=== PATIENT | male | born 1960 | race Caucasian/White ===

== ENCOUNTER 2020-04-03 09:32 | Inpatient (IN) | payer MEDICAID ==
[2020-04-03] MEDS ORDERED: NITROGLYCERIN OINT 1 INCH/GM PACKET TOPICAL STA (10:14)
[2020-04-03] MEDS ORDERED: ASPIRIN 81 MG PO STA (10:14)
--- NOTE | 2020-04-03 10:34 | XR ---
EXAMINATION TYPE: XR chest 2V DATE OF EXAM: 04/03/2020 COMPARISON: None HISTORY: 59-year-old male with chest pain TECHNIQUE: PA and lateral views FINDINGS: Heart normal size. Mild tortuosity of the thoracic aorta. Mild interstitial prominence of the chronic appearance. No consolidation or pleural effusion. Old right-sided rib fracture deformity. IMPRESSION: Chronic-appearing changes without acute cardiopulmonary process.
--- NOTE | 2020-04-03 10:34 | ED ---
General Adult HPI - General Chief complaint: Chest Pain Stated complaint: heart burn/chest pain Time Seen by Provider: 04/03/20 09:35 Source: patient, RN notes reviewed, old records reviewed Mode of arrival: ambulatory Limitations: no limitations - History of Present Illness Initial comments: This is a 59-year-old male who presents to the emergency department who states been having intermittent chest pain for months. Patient states his been getting worse. Patient states is definitely worse with exertion. Patient denies any radiation of the pain he denies any shortness of breath or diaphoretic episodes. Patient denies any nausea vomiting. Patient thought it was heartburn but taking Tums or antacids do not help. Patient denies any recent fever chills or cough. Patient states the pain typically only last 2-3 minutes. Patient states he is a smoker and he does have a brother who had a stent. - Related Data Home Medications Medication Instructions Recorded Confirmed No Known Home Medications 04/03/20 04/03/20 Allergies Allergy/AdvReac Type Severity Reaction Status Date / Time Tetanus Vaccines and Toxoid Allergy Unknown Verified 04/03/20 10:33 Review of Systems ROS Statement: Those systems with pertinent positive or pertinent negative responses have been documented in the HPI. ROS Other: All systems not noted in ROS Statement are negative. Past Medical History Past Medical History: No Reported History History of Any Multi-Drug Resistant Organisms: None Reported Past Surgical History: No Surgical Hx Reported Past Psychological History: No Psychological Hx Reported Smoking Status: Current every day smoker Past Alcohol Use History: Rare Past Drug Use History: Marijuana General Exam - General Exam Comments Initial Comments: GENERAL: Patient is well-developed and well-nourished. Patient is nontoxic and well- hydrated and is in mild distress. ENT: Neck is soft and supple. No significant lymphadenopathy is noted. Oropharynx is clear. Moist mucous membranes. Neck has full range of motion without eliciting any pain. EYES: The sclera were anicteric and conjunctiva were pink and moist. Extraocular movements were intact and pupils were equal round and reactive to light. Eyelids were unremarkable. PULMONARY: Unlabored respirations. Good breath sounds bilaterally. No audible rales rhonchi or wheezing was noted. CARDIOVASCULAR: There is a regular rate and rhythm without any murmurs gallops or rubs. ABDOMEN: Soft and nontender with normal bowel sounds. SKIN: Skin is clear with no lesions or rashes and otherwise unremarkable. NEUROLOGIC: Patient is alert and oriented x3. Cranial nerves II through XII are grossly intact. Motor and sensory are also intact. Normal speech, volume and content. Symmetrical smile. MUSCULOSKELETAL: Normal extremities with adequate strength and full range of motion. No lower extremity swelling or edema. No calf tenderness. LYMPHATICS: No significant lymphadenopathy is noted PSYCHIATRIC: Normal psychiatric evaluation. Limitations: no limitations Course Vital Signs 04/03/20 04/03/20 04/03/20 09:33 10:19 11:14 Temperature 97.9 F Pulse Rate 59 L 58 L 52 L Respiratory 18 16 16 Rate Blood Pressure 185/82 144/86 142/83 O2 Sat by Pulse 98 97 99 Oximetry Medical Decision Making - Medical Decision Making EKG shows sinus bradycardia 56 bpm WV interval 144 QRS is 86 QT interval is 424 QTC is 409. EKG shows no ST segment elevation or depression. Chest x-ray shows no acute abnormality. I started the patient heparin because of an elevated troponin had symptoms that clinically were consistent with unstable angina. I spoke with Dr. Tirado agreed to admit the patient admitted the patient wrote admitting orders I continued heparin Nitropaste on the floor. - Lab Data Result diagrams: 04/03/20 09:56 04/03/20 09:56 Lab Results 04/03/20 04/03/20 04/03/20 Range/Units 09:56 09:56 09:56 WBC 6.3 (3.8-10.6) k/uL RBC 5.11 (4.30-5.90) m/uL Hgb 15.6 (13.0-17.5) gm/dL Hct 47.8 (39.0-53.0) % MCV 93.6 (80.0-100.0) fL MCH 30.6 (25.0-35.0) pg MCHC 32.7 (31.0-37.0) g/dL RDW 12.9 (11.5-15.5) % Plt Count 225 (150-450) k/uL Neutrophils % 54 % Lymphocytes % 33 % Monocytes % 6 % Eosinophils % 4 % Basophils % 1 % Neutrophils # 3.4 (1.3-7.7) k/uL Lymphocytes # 2.1 (1.0-4.8) k/uL Monocytes # 0.4 (0-1.0) k/uL Eosinophils # 0.2 (0-0.7) k/uL Basophils # 0.1 (0-0.2) k/uL PT 9.9 (9.0-12.0) sec INR 0.9 (<1.2) APTT 24.1 (22.0-30.0) sec Sodium 138 (137-145) mmol/L Potassium 4.5 (3.5-5.1) mmol/L Chloride 105 (98-107) mmol/L Carbon Dioxide 24 (22-30) mmol/L Anion Gap 9 mmol/L BUN 18 (9-20) mg/dL Creatinine 0.88 (0.66-1.25) mg/dL Est GFR (CKD-EPI)AfAm >90 (>60 ml/min/1.73 sqM) Est GFR (CKD-EPI)NonAf >90 (>60 ml/min/1.73 sqM) Glucose 101 H (74-99) mg/dL Calcium 9.3 (8.4-10.2) mg/dL Magnesium 2.0 (1.6-2.3) mg/dL Total Bilirubin 0.5 (0.2-1.3) mg/dL AST 30 (17-59) U/L ALT 32 (4-49) U/L Alkaline Phosphatase 78 (38-126) U/L Troponin I (0.000-0.034) ng/mL Total Protein 7.3 (6.3-8.2) g/dL Albumin 4.5 (3.5-5.0) g/dL 04/03/20 Range/Units 09:56 WBC (3.8-10.6) k/uL RBC (4.30-5.90) m/uL Hgb (13.0-17.5) gm/dL Hct (39.0-53.0) % MCV (80.0-100.0) fL MCH (25.0-35.0) pg MCHC (31.0-37.0) g/dL RDW (11.5-15.5) % Plt Count (150-450) k/uL Neutrophils % % Lymphocytes % % Monocytes % % Eosinophils % % Basophils % % Neutrophils # (1.3-7.7) k/uL Lymphocytes # (1.0-4.8) k/uL Monocytes # (0-1.0) k/uL Eosinophils # (0-0.7) k/uL Basophils # (0-0.2) k/uL PT (9.0-12.0) sec INR (<1.2) APTT (22.0-30.0) sec Sodium (137-145) mmol/L Potassium (3.5-5.1) mmol/L Chloride (98-107) mmol/L Carbon Dioxide (22-30) mmol/L Anion Gap mmol/L BUN (9-20) mg/dL Creatinine (0.66-1.25) mg/dL Est GFR (CKD-EPI)AfAm (>60 ml/min/1.73 sqM) Est GFR (CKD-EPI)NonAf (>60 ml/min/1.73 sqM) Glucose (74-99) mg/dL Calcium (8.4-10.2) mg/dL Magnesium (1.6-2.3) mg/dL Total Bilirubin (0.2-1.3) mg/dL AST (17-59) U/L ALT (4-49) U/L Alkaline Phosphatase (38-126) U/L Troponin I 0.064 H* (0.000-0.034) ng/mL Total Protein (6.3-8.2) g/dL Albumin (3.5-5.0) g/dL Critical Care Time Critical Care Time: Yes Total Critical Care Time: 35 Disposition Clinical Impression: Unstable angina pectoris Disposition: ADMITTED IP TO THIS [facility] Referrals: None,Stated [Primary Care Provider] - 1-2 days Time of Disposition: 11:36
[2020-04-03 10:40] LABS: Basophils # (A) 0.1 k/uL (0-0.2); Basophils % (A) 1 %; Eosinophils # (A) 0.2 k/uL (0-0.7); Eosinophils % (A) 4 %; HCT 47.8 % (39.0-53.0); HGB 15.6 gm/dL (13.0-17.5); Lymphocytes # (A) 2.1 k/uL (1.0-4.8); Lymphocytes % (A) 33 %; MCH 30.6 pg (25.0-35.0); MCHC 32.7 g/dL (31.0-37.0); MCV 93.6 fL (80.0-100.0); Monocytes # (A) 0.4 k/uL (0-1.0); Monocytes % (A) 6 %; Neutrophils # (A) 3.4 k/uL (1.3-7.7); Neutrophils % (A) 54 %; Platelet Count 225 k/uL (150-450); RBC 5.11 m/uL (4.30-5.90); RDW 12.9 % (11.5-15.5); WBC 6.3 k/uL (3.8-10.6)
[2020-04-03 10:47] LABS: INR 0.9 (<1.2); Partial Thromboplastin Time 24.1 sec (22.0-30.0); Prothrombin Time 9.9 sec (9.0-12.0)
[2020-04-03 10:51] LABS: ALT 32 U/L (4-49); AST 30 U/L (17-59); African American GFR (CKD) >90 (>60 ml/min/1.73 sqM); Albumin 4.5 g/dL (3.5-5.0); Alkaline Phosphatase 78 U/L (38-126); Anion Gap 9 mmol/L; Blood Urea Nitrogen 18 mg/dL (9-20); Calcium 9.3 mg/dL (8.4-10.2); Carbon Dioxide 24 mmol/L (22-30); Chloride 105 mmol/L (98-107); Glucose 101 mg/dL (74-99); Non-African American GFR(CKD) >90 (>60 ml/min/1.73 sqM); Potassium 4.5 mmol/L (3.5-5.1); Sodium 138 mmol/L (137-145); Total Bilirubin 0.5 mg/dL (0.2-1.3); Total Protein 7.3 g/dL (6.3-8.2)
[2020-04-03] MEDS ORDERED: HEPARIN SODIUM,PORCINE 5,000 UNIT/ML 1 ML VIAL IV ONE (11:35)
[2020-04-03] MEDS ORDERED: NITROGLYCERIN SL TABS 0.4 MG TAB SUBLINGUAL PRN ×3 (11:36→17:56)
[2020-04-03] MEDS ORDERED: HEPARIN SOD,PORK IN 0.45% NACL 25,000 UNIT in 0.45% NACL 1 250ML.BAG IV SCH (11:45)
[2020-04-03] MEDS: NITROGLYCERIN OINT 1 INCH/GM PACKET TOPICAL SCH ×2 (12:12→15:42)
[2020-04-03] MEDS ORDERED: PANTOPRAZOLE 40 MG/10 ML VIAL IVP SCH (14:00)
--- NOTE | 2020-04-03 14:06 | P.HPIM ---
History of Present Illness 59-year-old the pleasant male came in with compensative intermittent chest pain has been going on for a few months mostly in the epigastric area burning sensation patient was having increasing pain yesterday patient had an episode of epigastric pain and retrosternal pain which is mostly pressure-like sensation moderate to severe associated with nausea denied any vomiting it's also associated shortness of breath or of diaphoresis. Patient doesn't have any ST segment elevation or depression. Patient does smoke about a pack a day patient does have history of premature cannot disease in his brother. Who had myocardial infarction around this age and had stents in the past. His chest pain lasts about a minute nonradiating not associated with food nonpleuritic in nature for nonexertional. Review of Systems REVIEW OF SYSTEMS: CONSTITUTIONAL: No fever, no malaise, no fatigue. HEENT: No recent visual problems or hearing problems. Denied any sore throat. CARDIOVASCULAR: No orthopnea, PND, no palpitations, no syncope. PULMONARY:, no cough, no hemoptysis. GASTROINTESTINAL: No diarrhea, no nausea, no vomiting, no abdominal pain. NEUROLOGICAL: No headaches, no weakness, no numbness. HEMATOLOGICAL: Denies any bleeding or petechiae. GENITOURINARY: Denies any burning micturition, frequency, or urgency. MUSCULOSKELETAL/RHEUMATOLOGICAL: Denies any joint pain, swelling, or any muscle pain. ENDOCRINE: Denies any polyuria or polydipsia. The rest of the 14-point review of systems is negative. Past Medical History Past Medical History: No Reported History Additional Past Medical History / Comment(s): psoriasis History of Any Multi-Drug Resistant Organisms: None Reported Past Surgical History: No Surgical Hx Reported Past Anesthesia/Blood Transfusion Reactions: No Reported Reaction Past Psychological History: No Psychological Hx Reported Smoking Status: Current every day smoker Past Alcohol Use History: Rare Past Drug Use History: Marijuana - Past Family History Brother(s) Additional Family Medical History / Comment(s): [place] with stent placed Medications and Allergies Home Medications Medication Instructions Recorded Confirmed Type No Known Home Medications 04/03/20 04/03/20 History Allergies Allergy/AdvReac Type Severity Reaction Status Date / Time Tetanus Vaccines and Toxoid Allergy Unknown Verified 04/03/20 10:33 Physical Exam Vitals: Vital Signs Temp Pulse Resp BP Pulse Ox 04/03/20 12:10 49 L 16 135/81 99 06/03/20 11:14 52 L 16 142/83 99 04/03/20 10:19 58 L 16 144/86 97 04/03/20 09:33 97.9 F 59 L 18 185/82 98 Intake and Output 04/02/20 04/03/20 04/03/20 22:59 06:59 14:59 Other: Weight 101.106 kg PHYSICAL EXAMINATION: GENERAL: The patient is alert and oriented x3, not in any acute distress. Well developed, well nourished. HEENT: Pupils are round and equally reacting to light. EOMI. No scleral icterus. No conjunctival pallor. Normocephalic, atraumatic. No pharyngeal erythema. No thyromegaly. CARDIOVASCULAR: S1 and S2 present. No murmurs, rubs, or gallops. PULMONARY: Chest is clear to auscultation, no wheezing or crackles. ABDOMEN: Soft, nontender, nondistended, normoactive bowel sounds. No palpable organomegaly. MUSCULOSKELETAL: No joint swelling or deformity. EXTREMITIES: No cyanosis, clubbing, or pedal edema. NEUROLOGICAL: Gross neurological examination did not reveal any focal deficits. SKIN: No rashes. Results CBC & Chem 7: 04/03/20 09:56 04/03/20 09:56 Labs: Abnormal Lab Results - Last 24 Hours (Table) 04/03/20 04/03/20 Range/Units 09:56 09:56 Glucose 101 H (74-99) mg/dL Troponin I 0.064 H* (0.000-0.034) ng/mL Thrombosis Risk Factor Assmnt - Choose All That Apply Each Factor Represents 1 point: Age 41-60 years Other Risk Factors: No Other congenital or acquired thrombophilia - If yes, enter type in comment: No Thrombosis Risk Factor Assessment Total Risk Factor Score: 1 Thrombosis Risk Factor Assessment Level: Low Risk Assessment and Plan Plan: -Chest pain: Possibly of unstable angina R non-ST elevation microinfarction cannot be ruled out at patient had a mild troponin elevation of 0.06 cardiology will evaluate patient will be continued on heparin. Patient may need a stress test or cardiac catheterization depending on the next appointment. -Nicotine abuse: Counseling was provided -Possibly gastric his visual reflux disease: Patient was started on Protonix
[2020-04-03] MEDS ORDERED: ATORVASTATIN 80 MG TAB PO STA (14:25)
[2020-04-03] MEDS ORDERED: ASPIRIN 325 MG TAB PO STA (14:25)
[2020-04-03] MEDS ORDERED: SODIUM CHLORIDE 0.9% 1,000 ML in EMPTY BAG 1 BAG IV ONE (14:25)
[2020-04-03] MEDS ORDERED: ALPRAZolam 0.5 MG TAB PO PRN (14:25)
[2020-04-03] MEDS ORDERED: ALPRAZolam 0.25 MG TAB PO PRN (14:25)
--- NOTE | 2020-04-03 14:30 | P.CRDCN ---
History of Present Illness Consult date: 04/03/20 Chief complaint: Chest pain History of present illness: This is a very pleasant 59-year-old gentleman who did not see physicians in more than 10 years with a significant history of smoking as well as significant family history of coronary artery disease involving his brother at his age presented to the emergency room complaining of chest discomfort. For the last 3-4 weeks he has been experiencing intermittent episodes of chest discomfort. He described his discomfort as a burning sensation, in the mid of the chest, without any radiation to the arms or neck or shoulders and without any associated symptoms of sweating, dizziness, heart racing, or syncope. The symptoms of chest discomfort seems to be exertional. Lately and for the last few days it has been more intense and more frequent converted to before and because of that he decided to come to the emergency department. The EKG showed sinus rhythm with sinus bradycardia and nonspecific changes/ST changes in the inferior leads. The cardiac enzymes were checked and came in to be abnormal and consistent was acute coronary syndrome. The chest x-ray did not show any acute abnormalities. Currently the patient is under a lot of stress with his who is a worker here in this hospital who does have cancer and currently she is on chemotherapy. The patient is not aware of any history of coronary artery disease or congestive heart failure or diabetes or hypertension or dyslipidemia but at the same time the patient does not see a doctor or primary care physician on regular basis. Past Medical History Past Medical History: No Reported History Additional Past Medical History / Comment(s): psoriasis History of Any Multi-Drug Resistant Organisms: None Reported Past Surgical History: No Surgical Hx Reported Past Anesthesia/Blood Transfusion Reactions: No Reported Reaction Past Psychological History: No Psychological Hx Reported Smoking Status: Current every day smoker Past Alcohol Use History: Rare Past Drug Use History: Marijuana - Past Family History Brother(s) Additional Family Medical History / Comment(s): [place] with stent placed Medications and Allergies Home Medications Medication Instructions Recorded Confirmed Type No Known Home Medications 04/03/20 04/03/20 History Allergies Allergy/AdvReac Type Severity Reaction Status Date / Time Tetanus Vaccines and Toxoid Allergy Unknown Verified 04/03/20 10:33 Physical Exam Vitals: Vital Signs Temp Pulse Resp BP Pulse Ox 04/03/20 12:10 49 L 16 135/81 99 04/03/20 11:14 52 L 16 142/83 99 04/03/20 10:19 58 L 16 144/86 97 04/03/20 09:33 97.9 F 59 L 18 185/82 98 Intake and Output 04/02/20 04/03/20 04/03/20 22:59 06:59 14:59 Other: Weight 101.106 kg - Constitutional General appearance: no acute distress - Respiratory Respiratory: bilateral: CTA - Cardiovascular Rhythm: regular Heart sounds: normal: S1, S2 Results 04/03/20 09:56 04/03/20 09:56 Cardiac Enzymes 04/03/20 04/03/20 Range/Units 09:56 09:56 AST 30 (17-59) U/L Troponin I 0.064 H* (0.000-0.034) ng/mL Coagulation 04/03/20 Range/Units 09:56 PT 9.9 (9.0-12.0) sec APTT 24.1 (22.0-30.0) sec CBC 04/03/20 Range/Units 09:56 WBC 6.3 (3.8-10.6) k/uL RBC 5.11 (4.30-5.90) m/uL Hgb 15.6 (13.0-17.5) gm/dL Hct 47.8 (39.0-53.0) % Plt Count 225 (150-450) k/uL Comprehensive Metabolic Panel 04/03/20 Range/Units 09:56 Sodium 138 (137-145) mmol/L Potassium 4.5 (3.5-5.1) mmol/L Chloride 105 (98-107) mmol/L Carbon Dioxide 24 (22-30) mmol/L BUN 18 (9-20) mg/dL Creatinine 0.88 (0.66-1.25) mg/dL Glucose 101 H (74-99) mg/dL Calcium 9.3 (8.4-10.2) mg/dL AST 30 (17-59) U/L ALT 32 (4-49) U/L Alkaline Phosphatase 78 (38-126) U/L Total Protein 7.3 (6.3-8.2) g/dL Albumin 4.5 (3.5-5.0) g/dL Current Medications Generic Name Dose Route Start Last Admin Trade Name Freq PRN Reason Stop Dose Admin Alprazolam 0.25 mg 04/03/20 14:25 Xanax PO Q6HR PRN Mild Anxiety Alprazolam 0.5 mg 04/03/20 14:25 Xanax PO Q6HR PRN Moderate Anxiety Aspirin 325 mg 04/04/20 09:00 Aspirin PO DAILY CHACHA Aspirin 325 mg 04/03/20 14:25 Aspirin PO 04/03/20 14:26 ONCE STA Atorvastatin Calcium 80 mg 04/03/20 14:25 Lipitor PO 04/03/20 14:26 ONCE STA Heparin Sodium/Sodium Chloride 250 mls @ 9.89 mls/hr 04/03/20 11:45 04/03/20 12:31 25,000 unit/ Sodium Chloride IV 9.78 units/kg/hr .Q24H CHACHA 9.89 mls/hr Administration Protocol Sodium Chloride 1,000 ml/ IV 1,000 mls @ 101.106 mls/hr 04/03/20 14:25 Solution IV 04/04/20 00:18 .Q9H54M ONE 1 ML/KG/HR Lisinopril 5 mg 04/04/20 09:00 Zestril PO DAILY [facility] Nitroglycerin 1 inch 04/03/20 12:00 04/03/20 12:12 Nitro-Bid Oint TOPICAL Not Given Q6HR [facility] Nitroglycerin 0.4 mg 04/03/20 11:36 Nitrostat SUBLINGUAL Q5M PRN Chest Pain Nitroglycerin 0.4 mg 04/03/20 14:25 Nitrostat SUBLINGUAL Q5M PRN Chest Pain Pantoprazole Sodium 40 mg 04/03/20 14:00 Protonix IVP DAILY [facility] Intake and Output 04/02/20 04/03/20 04/03/20 22:59 06:59 14:59 Other: Weight 101.106 kg Patient Weight 04/04/20 06:59 Weight 101.106 kg 04/03/20 09:56 04/03/20 09:56 Assessment and Plan Assessment: Assessment #1 acute non-ST elevation myocardial infarction #2 significant history of smoking #3 significant family history of coronary artery disease Plan #1 continue the current medical regimen including aspirin and heparin #2 start the patient on lisinopril for blood pressure control #3 start the patient on oral nitrate #4 obtain an echocardiogram was Doppler #5 scheduled the patient to undergo coronary angiogram to rule out severe CAD #6 follow up with the patient Thank you for allowing us participate in his care
[2020-04-03] MEDS: LISINOPRIL 5 MG TAB PO SCH (15:41)
[2020-04-03 16:09] LABS: Glucose,Whole Blood 116 mg/dL (75-99)
[2020-04-03] MEDS ORDERED: VERAPAMIL 2.5 MG/ML 2 ML AMP ONE (16:39)
[2020-04-03] MEDS ORDERED: LIDOCAINE 1% INJ 10MG/ML (20 ML MDV) ONE (16:39)
[2020-04-03] MEDS ORDERED: HEPARIN SODIUM 1,000 UN/ML (10ML VL) ONE (16:39)
[2020-04-03] MEDS ORDERED: IV FLUID CONTINUATION 1,000 ML IV ONE (16:52)
[2020-04-03] MEDS ORDERED: MIDAZOLAM 2 MG/2 ML VIAL IV ONE (17:27)
[2020-04-03] MEDS ORDERED: LIDOCAINE 1% INJ 10MG/ML (20 ML MDV) SQ ONE (17:27)
[2020-04-03] MEDS: VERAPAMIL SYRINGE (5 MG/10 ML) INTRAARTER ONE ×2 (17:29→17:49)
[2020-04-03] MEDS ORDERED: BIVALIRUDIN BOLUS 250 MG/50 ML IV ONE (17:32)
[2020-04-03] MEDS ORDERED: BIVALIRUDIN 250 MG in SODIUM CHLORIDE 0.9% 50 ML IV ONE (17:33)
[2020-04-03] MEDS ORDERED: PRASUGREL 10 MG TAB ONE (17:34)
[2020-04-03] MEDS ORDERED: PRASUGREL 10 MG TAB PO ONE (17:34)
[2020-04-03] MEDS ORDERED: NITROGLYCERIN 1000MCG/10ML SYRINGE INTRACORON ONE (17:44)
[2020-04-03] MEDS ORDERED: IOPAMIDOL-370 125ML BTL INJ ONE (17:48)
[2020-04-03] MEDS ORDERED: ATROPINE SULFATE 0.1 MG/ML 10ML SYRINGE IV PRN (17:56)
[2020-04-03] MEDS ORDERED: MAG HYDROX/AL HYDROX/SIMETH 30 ML CUP PO PRN (17:56)
[2020-04-03] MEDS ORDERED: ZOLPIDEM 5 MG TAB PO PRN (17:56)
[2020-04-03] MEDS ORDERED: RX INFO: IV CONTRAST WAS GIVEN 1 EACH MISC MISCELLANE PRN (17:56)
[2020-04-03] MEDS ORDERED: SODIUM CHLORIDE 0.9% 1,000 ML IV SCH (18:00)
--- NOTE | 2020-04-03 18:31 | CC ---
CARDIAC CATHETERIZATION REPORT DATE OF PROCEDURE: 04/03/2020 PERFORMING PHYSICIAN: Gucci Lockett M.D. PROCEDURES PERFORMED: 1. Selective right and left coronary angiogram. 2. Left heart catheterization. 3. Successful stenting of the distal right coronary artery using a 4.0 x 15 mm Xience drug-eluting stent with an excellent angiographic result and reduction of stenosis from 99% to 0%. INDICATION: This is a 59-year-old gentleman with history of smoking and significant family history of coronary artery disease. He presented to the hospital with chest discomfort and ruled in for acute [id number] myocardial infarction. Because of the EKG changes as well as abnormal cardiac enzymes and chest discomfort, I decided to pursue heart catheterization. APPROACH: Right radial artery. COMPLICATIONS: None. LEVEL OF SEDATION: Moderate, with sedation length of 24 minutes. PROCEDURE DESCRIPTION: After obtaining informed consent, the patient was brought to the cardiac laboratory courier. The right radial artery was cannulated using micropuncture technique. The micropuncture wire passed easily. Then I placed a 6-Telugu sheath 11 cm at the right radial artery. After that I gave the patient 2 mg of verapamil IA. Selective right and left coronary angiogram was performed using JR4 and JL3.5 catheters. Left heart catheterization was performed using a 6-Telugu pigtail catheter. The left heart catheterization was performed after the angioplasty on the right. Subsequently I did intervene on the right coronary artery. Please see separate paragraph for that. SELECTIVE CORONARY ANGIOGRAM: 1. The right coronary artery is a large-caliber vessel and it is a dominant vessel. The proximal and mid RCA appeared to be angiographically normal. The RCA distally has a tight lesion that appeared to be in the range of 95% to 99%. 2. The left main is angiographically normal. It bifurcates into LCX and LAD. 3. The left circumflex is a large-caliber vessel. It is a nondominant vessel. The proximal circumflex is angiographically normal and gives rise to OM1 which seems to be normal. The mid circumflex has mild disease only and that is involving OM2, which is a large-caliber vessel. The circumflex continues after that as a small- caliber vessel in the AV groove. 4. The LAD. The proximal LAD appeared to have mild disease only. The mid LAD is normal and gives rise to a large diagonal branch which seems to be angiographically normal. The LAD distally appeared to be normal. 5. HEMODYNAMICS: The LVEDP was 10 to 12 mmHg without significant gradient across the aortic valve. PERCUTANEOUS CORONARY INTERVENTION OF THE RIGHT CORONARY ARTERY: Anticoagulation was initiated using Angiomax. Subsequently I did engage the RCA using JR4 guide. I did wire the right coronary artery using a run-through wire. Subsequently I did direct stenting on the lesion using a 4.0 x 15 mm Xience KIM where the stent was positioned under fluoroscopic guidance and deployed under 16 atmospheres for 20 seconds. The following angiogram showed good angiographic results and the procedure was completed without any complication. CONCLUSION: 1. Critical disease involving the distal right coronary artery. I performed successful stenting of the distal right coronary artery. 2. Mild disease involving the left coronary system. 3. Normal left ventricular end-diastolic pressure. POST-PROCEDURE MANAGEMENT: 1. Maximize medical treatment. 2. Follow up with the patient. [id number] / IJN: [id number] /
[2020-04-04 07:09] LABS: African American GFR (CKD) >90 (>60 ml/min/1.73 sqM); Cholesterol 182 mg/dL (<200); HDL Cholesterol 39 mg/dL (40-60); LDL Cholesterol,Calculated 119 mg/dL (0-99); Non-African American GFR(CKD) >90 (>60 ml/min/1.73 sqM); Triglycerides 121 mg/dL (<150)
[2020-04-04] MEDS: NITROGLYCERIN OINT 1 INCH/GM PACKET TOPICAL SCH (07:20)
[2020-04-04] MEDS ORDERED: PANTOPRAZOLE 40 MG TABLET PO SCH (08:45)
[2020-04-04] MEDS ORDERED: LISINOPRIL 5 MG TAB PO SCH (09:00)
[2020-04-04] MEDS ORDERED: ASPIRIN 325 MG TAB PO SCH (09:00)
[2020-04-04] MEDS ORDERED: ISOSORBIDE MONONITRATE ER 30 MG TAB.ER.24H PO SCH (09:00)
[2020-04-04] MEDS ORDERED: ASPIRIN 81 MG PO SCH (09:00)
[2020-04-04] MEDS ORDERED: PRASUGREL 10 MG TAB PO SCH (09:00)
[2020-04-04] MEDS: LISINOPRIL 5 MG TAB PO SCH (09:02)
--- NOTE | 2020-04-04 10:07 | P.PN ---
Subjective Progress Note Date: 04/04/20 This is a very pleasant 59-year-old gentleman who did not see physicians in more than 10 years with a significant history of smoking as well as significant family history of coronary artery disease involving his brother at his age presented to the emergency room complaining of chest discomfort. patient was noted to have mild abnormality in troponin, as well as subsequent EKG changes. For this reason he was taken to the cardiac catheterization lab yesterday by Dr. Avilapatient underwent successful stenting of the distal right coronary artery. He was seen and examined this morning, denied any chest pain, no difficulty in breathing.blood pressure 112/78, heart rate 51-58, 98% on room air.creatinine this morning 0.8. Objective - Vital Signs Vital signs: Vital Signs Temp 97.9 F 04/04/20 04:00 Pulse 51 L 04/04/20 04:00 Resp 14 04/04/20 04:00 BP 112/78 04/04/20 04:00 Pulse Ox 98 04/04/20 04:00 Intake & Output 04/03/20 04/04/20 04/04/20 18:59 06:59 18:59 Intake Total 167.637 118 Balance 167.637 118 Weight 101.106 kg 99.6 kg Intake: IV 135 Intake, IV Titration 32.637 Amount Heparin Sod,Pork in 0.45% 32.637 NaCl 25,000 unit In 0.45 % NaCl 1 250ml.bag @ 9.89 mls/hr IV .Q24H [facility] Rx#: [id number] Oral 118 Other: # Voids 2 - Exam PHYSICAL EXAMINATION: GENERAL:59-year-old gentleman in no acute distress at the time of my HEENT: Head is atraumatic, normocephalic. Pupils equal, round. Sclera anicteric. Conjunctiva are clear. Mucous membranes of the mouth are moist. Neck is supple. There is no elevated jugular venous pressure.no carotid bruit is heard. HEART EXAMINATION: [Heart S1, S2 normal. No murmur or gallop heard.] CHEST EXAMINATION:[ Lungs are clear to auscultation and precussion. No chest wall tenderness is noted on palpation or with deep breathing.] ABDOMEN: [ Soft, nontender. Bowel sounds are heard. No organomegaly noted]. EXTREMITIES:[ 2+ peripheral pulses with no evidence of peripheral edema and no calf tenderness noted].right radial site clean and dry, good distal pulse. NEUROLOGIC [patient is awake, alert and oriented 3.] . - Labs CBC & Chem 7: 04/03/20 09:56 04/04/20 06:27 Labs: Abnormal Lab Results - Last 24 Hours (Table) 04/03/20 04/03/20 04/03/20 Range/Units 09:56 09:56 14:52 Glucose 101 H (74-99) mg/dL POC Glucose (mg/dL) (75-99) mg/dL Troponin I 0.064 H* 0.071 H* (0.000-0.034) ng/mL LDL Cholesterol, Calc (0-99) mg/dL HDL Cholesterol (40-60) mg/dL 04/03/20 04/03/20 04/04/20 Range/Units 16:08 21:20 06:27 Glucose (74-99) mg/dL POC Glucose (mg/dL) 116 H (75-99) mg/dL Troponin I 0.078 H* (0.000-0.034) ng/mL LDL Cholesterol, Calc 119 H (0-99) mg/dL HDL Cholesterol 39 L (40-60) mg/dL Assessment and Plan Plan: assessment and plan #1 non-ST elevation MO status post angioplasty and stenting of the right griggs ry artery #2 nicotine dependence #3 hyperlipidemia Plan Patient may be discharged home today. We'll make a follow-up appointment with Dr. Avila in the office in one week. He has been educated regarding the importance of dual antiplatelet therapy. Patient is not on a beta pato because of bradycardia. DNP note has been reviewed, I agree with a documented findings and plan of care. Patient was seen and examined.
[2020-04-04 10:18] VITALS: BMI 29.7
--- NOTE | 2020-04-04 10:52 | P.DS ---
Providers Date of admission: 04/03/20 11:36 Attending physician: Medardo Echols Consults: 04/03/20 11:36 Consult Physician Urgent Consulting Provider: Cardiology Jaya Consult Reason/Comments: Unstable angina Do you want consulting provider notified?: Yes 04/03/20 17:56 Consult Physician Routine Consulting Provider: [place] Consult Reason/Comments: Post Interventional patient Do you want consulting provider notified?: Already Contacted Primary care physician: Stated None Hospital Course: His admitted for non-ST elevation microinfarction underwent cardiac catheterization and found to have occlusion of RCA, patient underwent stenting of RCA and patient will be discharged today patient heart rate is in 50s and patient had inferior wall microinfarction because of which are not discharged on metoprolol patient will be discharged on dual antiplatelet therapy statin and lisinopril. I do not have an echocardiogram available yet. PHYSICAL EXAMINATION: GENERAL: The patient is alert and oriented x3, not in any acute distress. Well developed, well nourished. HEENT: Pupils are round and equally reacting to light. EOMI. No scleral icterus. No conjunctival pallor. Normocephalic, atraumatic. No pharyngeal erythema. No thyromegaly. CARDIOVASCULAR: S1 and S2 present. No murmurs, rubs, or gallops. PULMONARY: Chest is clear to auscultation, no wheezing or crackles. ABDOMEN: Soft, nontender, nondistended, normoactive bowel sounds. No palpable organomegaly. MUSCULOSKELETAL: No joint swelling or deformity. EXTREMITIES: No cyanosis, clubbing, or pedal edema. NEUROLOGICAL: Gross neurological examination did not reveal any focal deficits. SKIN: No rashes. For rest of medical problems has physician course please refer to my HPI from yesterday Plan - Discharge Summary Discharge Rx Participant: No New Discharge Prescriptions: New Aspirin 81 mg PO DAILY #30 chew Prasugrel [Effient] 10 mg PO DAILY #30 tab Isosorbide Mononitrate ER [Imdur] 30 mg PO DAILY #30 tab.er.24h Atorvastatin [Lipitor] 80 mg PO HS #30 tab Nitroglycerin Sl Tabs [Nitrostat] 0.4 mg SUBLINGUAL Q5M PRN #30 tab PRN Reason: Chest Pain Lisinopril [Zestril] 5 mg PO DAILY #30 tab Discharge Medication List Aspirin 81 mg PO DAILY #30 chew 04/04/20 [Rx] Atorvastatin [Lipitor] 80 mg PO HS #30 tab 04/04/20 [Rx] Isosorbide Mononitrate ER [Imdur] 30 mg PO DAILY #30 tab.er.24h 04/04/20 [Rx] Lisinopril [Zestril] 5 mg PO DAILY #30 tab 04/04/20 [Rx] Nitroglycerin Sl Tabs [Nitrostat] 0.4 mg SUBLINGUAL Q5M PRN #30 tab 04/04/20 [Rx] Prasugrel [Effient] 10 mg PO DAILY #30 tab 04/04/20 [Rx] Follow up Appointment(s)/Referral(s): Gucci Lockett MD [STAFF PHYSICIAN] - 04/11/20 11:00 am Jose Mcfarlane III, MD [STAFF PHYSICIAN] - 1 Week (Please call the office to set up an appointment) Patient Instructions/Handouts: *Surgery [facility] - After Heart Catheterization - Guide Dog Instructor Instructions Activity/Diet/Wound Care/Special Instructions: follow activity restrictions until seen at follow up appointment Discharge Disposition: HOME SELF-CARE
[2020-04-04 11:21] VITALS: BP 124/77; PULSE 54; RESP 16; TEMP 97.7
--- NOTE | 2020-04-04 15:21 | ECHOF ---
Referral Reason:NSTEMI MEASUREMENTS -------- HEIGHT: 182.9 cm WEIGHT: 100.7 kg BP: 163/93 IVSd: 1.4 cm (0.6 - 1.1) LVIDd: 5.4 cm (3.9 - 5.3) LVPWd: 1.6 cm (0.6 - 1.1) IVSs: 2.6 cm LVIDs: 2.8 cm LVPWs: 1.6 cm RVIDd: 4.0 cm (< 3.3) LAESV Index (A-L): 23.78 ml/m Ao Diam: 3.8 cm (2.0 - 3.7) AV Cusp: 2.2 cm (1.5 - 2.6) EPSS: 0.6 cm MV E Bhaskar: 0.93 m/s MV DecT: 230 ms MV A Bhaskar: 0.60 m/s MV E/A Ratio: 1.55 RAP: 5.00 mmHg RVSP: 28.98 mmHg %FS: 32.14 % EDV(Teich): 195.61 ml EF(Teich): 59.32 % ESV(Teich): 79.58 ml IVSd: 0.85 cm (0.6 - 1.1) IVSs: 1.85 cm LVIDd: 6.22 cm (3.9 - 5.3) LVIDs: 4.22 cm LVPWd: 1.26 cm (0.6 - 1.1) LVPWs: 1.67 cm MV EF SLOPE: 105.10 mm/s (70 - 150) MV EXCURSION: 13.60 mm (> 18.000) SV(Teich): 116.03 ml FINDINGS -------- Resting bradycardia (HR<60bpm). This was a technically difficult study with suboptimal apical views. The left ventricular size is normal. There is moderate concentric left ventricular hypertrophy. O verall left ventricular systolic function is low-normal with, an EF between 50 - 55 %. The diastoli c filling pattern is normal for the age of the patient 11.86. Atypical septal wall motion The right ventricle is moderately enlarged. Normal LA size by volume 22+/-6 ml/m2. The right atrial size is normal. 5.0mg of Lumason was utilized for enhancement of images Interatrial and interventricular septum intact. The aortic valve is trileaflet and appears structurally normal. There is no evidence of aortic regu rgitation. There is no evidence of aortic stenosis. No mitral regurgitation. Mild tricuspid regurgitation present. There is no evidence of pulmonary hypertension. The right v entricular systolic pressure, as measured by Doppler, is 28.98mmHg. There is no pulmonic regurgitation present. The aortic root size is normal. IVC Not well visulized. Echo free space represents a pericardial fat pad. There is no pericardial effusion. CONCLUSIONS -------- 1. Resting bradycardia (HR<60bpm). 2. This was a technically difficult study with suboptimal apical views. 3. The left ventricular size is normal. 4. There is moderate concentric left ventricular hypertrophy. 5. Overall left ventricular systolic function is low-normal with, an EF between 50 - 55 %. 6. The diastolic filling pattern is normal for the age of the patient 11.86 7. Atypical septal wall motion 8. The right ventricle is moderately enlarged. 9. Normal LA size by volume 22+/-6 ml/m2. 10. The right atrial size is normal. 11. 5.0mg of Lumason was utilized for enhancement of images 12. Interatrial and interventricular septum intact. 13. The aortic valve is trileaflet and appears structurally normal. 14. There is no evidence of aortic regurgitation. 15. There is no evidence of aortic stenosis. 16. No mitral regurgitation. 17. Mild tricuspid regurgitation present. 18. There is no evidence of pulmonary hypertension. 19. The right ventricular systolic pressure, as measured by Doppler, is 28.98mmHg. 20. There is no pulmonic regurgitation present. 21. The aortic root size is normal. 22. IVC Not well visulized. 23. Echo free space represents a pericardial fat pad. 24. There is no pericardial effusion. CERTIFIED MARINE MECHANIC: Anaya Esteves RDCS
[2020-04-04] MEDS ORDERED: ATORVASTATIN 80 MG TAB PO SCH (21:00)
== END 2020-04-04 11:48 | disposition home or self-care (01) | DRG 247 ==
LOC: EC 09:32 → 3SCARD 11:36
PROVIDERS: ADMIT Internal Medicine; ATTEND Internal Medicine
PROC: 027034Z Dilation of Coronary Artery, One Artery with Drug-eluting Intraluminal Device, Percutaneous Approach (ICD-10-PCS; principal; 2020-04-03 17:00)
PROC: B2111ZZ Fluoroscopy of Multiple Coronary Arteries using Low Osmolar Contrast (ICD-10-PCS; principal; 2020-04-03 17:00)
PROC: 4A023N7 Measurement of Cardiac Sampling and Pressure, Left Heart, Percutaneous Approach (ICD-10-PCS; principal; 2020-04-03 17:00)
DX: I21.4 Non-ST elevation (NSTEMI) myocardial infarction (principal); E78.5 Hyperlipidemia, unspecified; F17.210 Nicotine dependence, cigarettes, uncomplicated; K21.9 Gastro-esophageal reflux disease without esophagitis; L40.9 Psoriasis, unspecified; I25.10 Atherosclerotic heart disease of native coronary artery without angina pectoris; Z88.7 Allergy status to serum and vaccine; Z82.49 Family history of ischemic heart disease and other diseases of the circulatory system
CPT/HCPCS: 36415; 71046; 80053; 80061; 82565; 83735; 84484; 85025; 85610; 85730; 93005; 93306; 93458; 96374; 99291

== ENCOUNTER 2022-03-24 06:57 | Day surgery (SDC) | payer MEDICAID ==
[2022-03-16 13:38] VITALS: BMI 34.4
[~2022-03-24 06:57] MED LIST: LACTATED RINGERS 1,000 ML IV SCH; LIDOCAINE 1% (10MG/ML) FOR IV START INTRADERMA PRN
[2022-03-24 07:31] VITALS: RESP 16; TEMP 98.1
[2022-03-24] MEDS ORDERED: PROPOFOL 10 MG/ML 20 ML VIAL IV ONE (07:37)
--- NOTE | 2022-03-24 07:39 | P.GSHP ---
History of Present Illness H&P Date: 03/24/22 Chief Complaint: colon cancer screening 61-year-old male here today for screening colonoscopy. He has not had one previously. No family history of colon cancer. Past Medical History Past Medical History: Coronary Artery Disease (CAD), Hyperlipidemia, Myocardial Infarction (PA), Osteoarthritis (OA), Skin Disorder Additional Past Medical History / Comment(s): psoriasis, + COVID 11/2021-mild cough, hx migraines, Last Myocardial Infarction Date:: 04/2020 History of Any Multi-Drug Resistant Organisms: None Reported Past Surgical History: Heart Catheterization With Stent, Orthopedic Surgery Additional Past Surgical History / Comment(s): one cardiac stent, anesthesia to repair skin laceration on knee, cyst removed from left middle finger Past Anesthesia/Blood Transfusion Reactions: Motion Sickness Date of Last Stent Placement:: 04/02/2020 Smoking Status: Former smoker - Past Family History Brother(s) Family Medical History: Cancer Additional Family Medical History / Comment(s): PA with stent placed Medications and Allergies Home Medications Medication Instructions Recorded Confirmed Type Nitroglycerin Sl Tabs [Nitrostat] 0.4 mg SUBLINGUAL Q5M PRN #30 tab 04/04/20 03/24/22 Rx Aspirin 81 mg PO PC-SUPPER 03/16/22 03/24/22 History Atorvastatin [Lipitor] 80 mg PO PC-SUPPER 03/16/22 03/24/22 History Losartan Potassium [Cozaar] 50 mg PO PC-SUPPER 03/16/22 03/24/22 History Tamsulosin HCl [Flomax] 0.4 mg PO PC-SUPPER 03/16/22 03/24/22 History Allergies Allergy/AdvReac Type Severity Reaction Status Date / Time Tetanus Vaccines and Toxoid Allergy states his Verified 03/24/22 07:18 body tightened up and was achy. his doctor told h Surgical - Exam Physical exam: General: Well-developed, well-nourished HEENT: Normocephalic, sclerae nonicteric Abdomen: Nontender, nondistended Extremities: No edema Neuro: Alert and oriented Assessment and Plan (1) Colon cancer screening Narrative/Plan: Will proceed with colonoscopy at this time Current Visit: Yes Status: Acute Code(s): Z12.11 - ENCOUNTER FOR SCREENING FOR MALIGNANT NEOPLASM OF COLON SNOMED Code(s): 665671115
--- NOTE | 2022-03-24 07:59 | P.PCN ---
Date of Procedure: 03/24/22 Procedure(s) Performed: PREOPERATIVE DIAGNOSIS: Colon cancer screening POSTOPERATIVE DIAGNOSIS: Diverticulosis, transverse colon polyp, rectal polyp PROCEDURE: Colonoscopy with snare polypectomy ANESTHESIA: MAC SURGEON: Stanley Collado M.D. SPECIMENS: Polyps ENDOSCOPIC PROCEDURE: The patient was placed on the endoscopy table in the left decubitus position. The Olympus colonoscope was inserted into the anus and passed under direct visualization to the base of the cecum. The appendiceal orifice was visualized. From that point the scope was slowly withdrawn inspecting all surfaces carefully. There were no neoplastic inflammatory or polypoid lesions throughout the cecum and ascending colon. In the transverse colon a small polyp was seen and removed using the snare with cautery technique. The remainder of the transverse descending and sigmoid appeared normal. In the rectum a small polyp was seen as well and removed in a similar fashion. The patient had extensive left-sided diverticulosis present. Digital rectal examination was normal. The patient was taken to the recovery room in stable condition per anesthesia guidelines. RECOMMENDATIONS: Await biopsy results. Repeat colonoscopy likely 5 years.
[2022-03-24 08:31] VITALS: BP 143/82; PULSE 51
== END 2022-03-24 08:33 | disposition home or self-care (01) ==
LOC: ORWHC2ENDO 06:57
PROVIDERS: ATTEND Surgery
DX: Z12.11 Encounter for screening for malignant neoplasm of colon (principal); K57.90 Diverticulosis of intestine, part unspecified, without perforation or abscess without bleeding; D12.3 Benign neoplasm of transverse colon; E78.5 Hyperlipidemia, unspecified; I25.10 Atherosclerotic heart disease of native coronary artery without angina pectoris; I25.2 Old myocardial infarction; M19.90 Unspecified osteoarthritis, unspecified site; Z82.49 Family history of ischemic heart disease and other diseases of the circulatory system; Z86.16 Personal history of COVID-19; Z87.891 Personal history of nicotine dependence; Z88.7 Allergy status to serum and vaccine; Z95.5 Presence of coronary angioplasty implant and graft
CPT/HCPCS: 45385; 88305; J2704

== ENCOUNTER 2023-09-30 09:47 | Emergency (ER) | payer MEDICAID ==
[2023-09-30 10:00] VITALS: RESP 18
--- NOTE | 2023-09-30 11:55 | ED ---
General Adult HPI - General Chief complaint: Extremity Injury, Lower Stated complaint: Left leg pain Time Seen by Provider: 09/30/23 09:48 Source: patient Mode of arrival: wheelchair Limitations: no limitations - History of Present Illness Initial comments: 63-year-old male presenting to the ED with a chief complaint of left calf pain. Patient states he has had this pain in his left calf for the past few months. States that he has been going back and forth to the chiropractor for this. States that this has seemed to help however this morning states when he got out of bed felt a pop in his left calf and has had increased pain of it since. States that he has been having difficulty ambulating secondary to this. No chest pain or shortness of breath. No other complaints. - Related Data Home Medications Medication Instructions Recorded Confirmed Aspirin 81 mg PO PC-SUPPER 03/16/22 03/24/22 Atorvastatin [Lipitor] 80 mg PO PC-SUPPER 03/16/22 03/24/22 Losartan Potassium [Cozaar] 50 mg PO PC-SUPPER 03/16/22 03/24/22 Tamsulosin HCl [Flomax] 0.4 mg PO PC-SUPPER 03/16/22 03/24/22 Previous Rx's Medication Instructions Recorded Nitroglycerin Sl Tabs [Nitrostat] 0.4 mg SUBLINGUAL Q5M PRN #30 tab 04/04/20 Allergies Allergy/AdvReac Type Severity Reaction Status Date / Time Tetanus Vaccines and Toxoid Allergy states his Verified 09/30/23 09:57 body tightened up and was achy. his doctor told h Review of Systems ROS Statement: Those systems with pertinent positive or pertinent negative responses have been documented in the HPI. ROS Other: All systems not noted in ROS Statement are negative. Past Medical History Past Medical History: Coronary Artery Disease (CAD), Hyperlipidemia, Hyp ertension Additional Past Medical History / Comment(s): psoriasis History of Any Multi-Drug Resistant Organisms: None Reported Past Surgical History: Heart Catheterization With Stent Past Anesthesia/Blood Transfusion Reactions: No Reported Reaction Past Psychological History: No Psychological Hx Reported Smoking Status: Former smoker Past Alcohol Use History: None Reported Past Drug Use History: Marijuana - Past Family History Brother(s) Additional Family Medical History / Comment(s): IA with stent placed General Exam Limitations: no limitations General appearance: alert, in no apparent distress Neck exam: Present: normal inspection Respiratory exam: Present: normal lung sounds bilaterally Cardiovascular Exam: Present: regular rate, normal rhythm GI/Abdominal exam: Present: soft Extremities exam: Present: other (Strength and sensation equal and intact in bilateral lower extremities. Lower extremity DP/PT pulses 1+. Pain on squeezing the calf. Pain on dorsiflexion of the left calf. No other skin changes) Neurological exam: Present: alert, oriented X3 Skin exam: Present: warm, dry Course Vital Signs 09/30/23 09:53 Temperature 97.7 F Pulse Rate 56 L Respiratory 18 Rate Blood Pressure 164/102 O2 Sat by Pulse 96 Oximetry Medical Decision Making - Medical Decision Making Was pt. sent in by a medical professional or institution (, PA, BEAD FILLER, urgent care, hospital, or group home...) When possible be specific @ -No Did you speak to anyone other than the patient for history (EMS, parent, family, police, friend...)? What history was obtained from this source @ -No Did you review nursing and triage notes (agree or disagree)? Why? @ -I reviewed and agree with nursing and triage notes Were old charts reviewed (outside hosp., previous admission, EMS record, old EKG, old radiological studies, urgent care reports/EKG's, group home records)? Report findings @ -No old charts were reviewed Differential Diagnosis (chest pain, altered mental status, abdominal pain women, abdominal pain men, vaginal bleeding, weakness, fever, dyspnea, syncope, headache, dizziness, GI bleed, back pain, seizure, CVA, palpatations, mental health, musculoskeletal)? @ -Differential Musculoskeletal Muscular strain, contusion, ligament sprain, fracture, arthritis, septic arthritis, bursitis, cellulitis, muscle spasm, nerve compression, DVT, arterial occlusion, herpes zoster, electrolyte abnormality, tumor.... This is not meant to be in all inclusive list EKG interpreted by me (3pts min.). @ -None X-rays interpreted by me (1pt min.). @ -None done CT interpreted by me (1pt min.). @ -None done U/S interpreted by me (1pt. min.). @ -Doppler ultrasound interpreted by me showing no evidence of DVT or other acute finding. What testing was considered but not performed or refused? (CT, X-rays, U/S, labs)? Why? @ -None What meds were considered but not given or refused? Why? @ -None Did you discuss the management of the patient with other professionals (professionals i.e. , PA, BEAD FILLER, lab, RT, psych nurse, social welfare research worker, health benefits specialist, teacher, development officer, rn field case manager)? Give summary @ -No Was smoking cessation discussed for >3mins.? @ -No Was critical care preformed (if so, how long)? @ -No Were there social determinants of health that impacted care today? How? (Homelessness, low income, unemployed, alcoholism, drug addiction, transportation, low edu. Level, literacy, decrease access to med. care, shelter, rehab)? @ -No Was there de-escalation of care discussed even if they declined (Discuss DNR or withdrawal of care, Hospice)? DNR status @ -No What co-morbidities impacted this encounter? (DM, HTN, Smoking, COPD, CAD, Cancer, CVA, ARF, Chemo, Hep., AIDS, mental health diagnosis, sleep apnea, morbid obesity)? @ -None Was patient admitted / discharged? Hospital course, mention meds given and route, prescriptions, significant lab abnormalities, going to OR and other pertinent info. @ -Discharge 63-year-old male presenting to the ED with left calf pain ongoing for the past few months however this morning felt a pop/shock go down his leg prompting presentation to the ED for further evaluation. Exam shows full strength and sensation of the lower extremity distally. Pulses intact. Doppler ultrasound showed no evidence of DVT. Patient discharged home in stable condition. Provided crutches. Discussed return precautions with patient who verbalizes agreement. Undiagnosed new problem with uncertain prognosis? @ -No Drug Therapy requiring intensive monitoring for toxicity (Heparin, Nitro, Insulin, Cardizem)? @ -No Were any procedures done? @ -No Diagnosis/symptom? @ -Left leg pain Acute, or Chronic, or Acute on Chronic? @ -Acute Uncomplicated (without systemic symptoms) or Complicated (systemic symptoms)? @ -Uncomplicated Side effects of treatment? @ -No Exacerbation, Progression, or Severe Exacerbation? @ -No Poses a threat to life or bodily function? How? (Chest pain, USA, IA, pneumonia, PE, COPD, DKA, ARF, appy, cholecystitis, CVA, Diverticulitis, Homicidal, Suicidal, threat to staff... and all critical care pts) @ -No Disposition Clinical Impression: Leg pain Disposition: HOME SELF-CARE Condition: Good Additional Instructions: Please return to the Emergency Department if symptoms worsen or any other concerns. Follow-up with your primary care provider or orthopedist. Is patient prescribed a controlled substance at d/c from ED?: No Referrals: Kirby Duarte MD [Primary Care Provider] - 1-2 days Medardo Marsh DO [Doctor of Osteopathic Medicine] - 1-2 days Time of Disposition: 12:51
--- NOTE | 2023-09-30 12:03 | US ---
EXAMINATION TYPE: US venous doppler duplex LE LT DATE OF EXAM: 09/30/2023 11:57 AM COMPARISON: NONE CLINICAL INDICATION: Male, 63 years old with history of r/o dvt; lt post calf and knee pain SIDE PERFORMED: Left TECHNIQUE: The lower extremity deep venous system is examined utilizing real time linear array sonog hugh with graded compression, doppler sonography and color-flow sonography. VESSELS IMAGED: Common Femoral Vein Deep Femoral Vein Greater Saphenous Vein * Femoral Vein Popliteal Vein Small Saphenous Vein * Proximal Calf Veins (* superficial vessels) Left Leg: Negative for DVT IMPRESSION: Grayscale, color doppler, spectral doppler imaging performed of the deep veins of the lo wer extremities. There is normal flow, compressibility, vascular waveforms.
[2023-09-30 14:11] VITALS: BP 150/89; PULSE 61; TEMP 98
== END 2023-09-30 13:55 | disposition home or self-care (01) ==
LOC: EC 09:47
DX: M79.662 Pain in left lower leg (principal); E78.5 Hyperlipidemia, unspecified; F12.90 Cannabis use, unspecified, uncomplicated; Z79.82 Long term (current) use of aspirin; Z79.899 Other long term (current) drug therapy; Z88.7 Allergy status to serum and vaccine; Z87.891 Personal history of nicotine dependence; Z95.5 Presence of coronary angioplasty implant and graft
CPT/HCPCS: 99283